=== PATIENT | male | born 1965 | race Caucasian/White ===

== ENCOUNTER 2016-08-22 05:37 | Inpatient (IN) | payer BC ==
[~2016-08-22] VITALS: Ht 172.7 cm; Wt 91.4 kg
[~2016-08-22 05:37] MED LIST: AVAPRO150 MG PO; DAILY VALUE1 EACH PO; IRON160 M1 PO; LIPITOR40 MG PO; LO-DOSE ASPIRIN81 M2 PO; MICROZIDE12.5 M1 PO; VITAMIN C1000 MG PO
[2016-08-22 06:15] VITALS: BP 143/93
[2016-08-22 11:02] VITALS: BP 131/81
[2016-08-22 15:59] VITALS: BP 121/84
[2016-08-22 18:14] LABS: HEMATOCRIT 39.9 % (38.0-50.0); MCV 91.7 FL (86-99)
[2016-08-22 20:03] VITALS: BP 161/93
[2016-08-23] VITALS: BP 135/82
[2016-08-23 04:27] VITALS: BP 119/77
[2016-08-23 06:50] LABS: ANION GAP 8 MEQ/L (2-14); CHLORIDE 100 MEQ/L (99-109); GFR ESTIMATE (CALCULATED) > 59 mL/min/; GLUCOSE 167 mg/dL (70-99); POTASSIUM 3.6 MEQ/L (3.7-5.4); SAMPLE HEMOLYSIS CHECK 0; SAMPLE ICTERIC CHECK 0; SAMPLE LIPEMIA CHECK 0; SODIUM 136 MEQ/L (136-147); UREA NITROGEN (BUN) 12 mg/dL (9-23)
[2016-08-23 08:00] VITALS: BP 121/71
[2016-08-23] MEDS ORDERED: BENADRYL25 MG PO (09:27)
[2016-08-23] MEDS ORDERED: TYLENOL REGULA325 MG PO (09:29)
[2016-08-23] MEDS ORDERED: SENNA PLUS TAB1 EACH PO (09:30)
[2016-08-23] MEDS ORDERED: XARELTO10 MG PO (09:31)
[2016-08-23] MEDS ORDERED: OXYCODONE HCL5 MG PO (09:31)
[2016-08-23 11:49] VITALS: BP 119/74
[2016-08-23 15:40] VITALS: BP 131/73
== END 2016-08-23 16:16 | disposition home health service (06) | DRG 470 ==
LOC: 2SOUTH 05:37 → 3WEST 10:58 → 2SOUTH 14:59 → 3WEST 08-23 16:16
PROVIDERS: Orthopaedic Surgery
PROC: 0SR902A Replacement of Right Hip Joint with Metal on Polyethylene Synthetic Substitute, Uncemented, Open Approach (ICD-10-PCS; principal; 2016-08-22)
DX: M16.11 Unilateral primary osteoarthritis, right hip (principal); I10 Essential (primary) hypertension; E78.00 Pure hypercholesterolemia, unspecified; Z96.612 Presence of left artificial shoulder joint; F17.210 Nicotine dependence, cigarettes, uncomplicated; E66.9 Obesity, unspecified; Z68.30 Body mass index [BMI] 30.0-30.9, adult; Z79.01 Long term (current) use of anticoagulants; Z88.5 Allergy status to narcotic agent; Z82.49 Family history of ischemic heart disease and other diseases of the circulatory system
CPT/HCPCS: 80048; 85014; 85018; 97530 GP; J0131; J0690; J1885; J2250; J3010; J7050; J7120; S0020